=== PATIENT | female | born 1995 | race American Indian/Alaskan Native ===

== ENCOUNTER 2016-08-05 01:04 | Emergency (ER) | payer BC ==
[2016-08-05] MEDS ORDERED: CATAPRES PO ONE (02:45)
--- NOTE | 2016-08-05 02:47 | Emergency Department Report ---
HPI - General Chief Complaint: Skin/Abscess/Foreign Body Time Seen by Provider: 08/05/16 02:42 - HPI HPI: 21-year-old female presents today with a condom in her vagina 4-5 hours. Patient denies any other medical complaints. Denies fever, chills, nausea, vomiting, chest pain, shortness of breath, abdominal pain, vaginal bleeding, vaginal discharge, urinary symptoms. ED Past Medical Hx - Past Medical History Previous Medical History?: No - Surgical History Past Surgical History?: No - Social History Smoking Status: Never Smoker Substance Use Type: None - Medications Home Medications: Home Medications Medication Instructions Recorded Confirmed Last Taken Type Amoxicillin [Trimox CAP] 500 mg PO Q8H #30 capsule 12/10/13 Unknown Rx Norethindrone AC-Eth Estradiol 1 tab PO DAILY 12/10/13 12/10/13 12/10/13 21:00 History [Junel] predniSONE [Deltasone] 50 mg PO QDAY #4 tab 12/10/13 Unknown Rx Acetaminophen/Codeine 1 tab PO Q6H PRN #14 tab 06/04/15 Unknown Rx [Acetaminophen-Codeine #3 TAB] methOCARBAMOL [Robaxin TAB] 500 mg PO BID PRN #16 tab 06/04/15 Unknown Rx ED Review of Systems ROS: Stated complaint: FOREIGN BODY VAGINA Other details as noted in HPI Constitutional: denies: chills, fever, malaise Eyes: denies: eye pain ENT: denies: ear pain, throat pain, congestion Respiratory: denies: cough, shortness of breath, wheezing Cardiovascular: denies: chest pain, palpitations Endocrine: no symptoms reported Gastrointestinal: denies: abdominal pain, nausea, vomiting Genitourinary: denies: urgency, dysuria, frequency, hematuria, discharge Neurological: denies: headache, weakness Physical Exam - Physical Exam Vital Signs: Vital Signs 08/05/16 08/05/16 01:11 01:14 Temperature 98.9 F 98.9 F Pulse Rate 92 H 92 H Respiratory 20 20 Rate Blood Pressure 174/110 Blood Pressure 174/110 [Right] O2 Sat by Pulse 99 99 Oximetry Physical Exam: GENERAL: The patient is well-developed and well-nourished. Patient is in NAD. HEAD: Normocephalic. Atraumatic. CHEST/LUNGS: Clear to auscultation throughout. HEART/CARDIOVASCULAR: Regular rate and rhythm. ABDOMEN: Abdomen is soft, nontender. Bowel sounds normoactive. No guarding or rebound tenderness. GENITAL: Normal external genitalia. Visible condom in the vaginal canal. No discharge or bleeding noted. EXTREMITIES: Peripheral pulses intact. Capillary refill less than 2 seconds. NEURO: Alert and oriented x 3. Normal gait. ED Course Vital Signs 08/05/16 08/05/16 01:11 01:14 Temperature 98.9 F 98.9 F Pulse Rate 92 H 92 H Respiratory 20 20 Rate Blood Pressure 174/110 Blood Pressure 174/110 [Right] O2 Sat by Pulse 99 99 Oximetry ED Medical Decision Making - Lab Data Vital Signs 08/05/16 08/05/16 08/05/16 01:11 01:14 03:02 Temperature 98.9 F 98.9 F Pulse Rate 92 H 92 H 71 Respiratory 20 20 Rate Blood Pressure 174/110 Blood Pressure 174/110 143/93 [Right] O2 Sat by Pulse 99 99 Oximetry - Medical Decision Making 21-year-old female presents today with a condom in her vagina. The condom was visible on pelvic exam and was removed using sterile sponge forceps. Patient tolerated the procedure well. Explained to patient that her blood pressure levels are elevated and she needs to follow up with the primary care provider. Patient expressed understanding. Patient is in no acute distress at this time. She will be discharged home and is encouraged to follow up with a primary care provider. She is encouraged to return to the emergency room for any worsening symptoms. Critical care attestation.: If time is entered above; I have spent that time in minutes in the direct care of this critically ill patient, excluding procedure time. ED Disposition Clinical Impression: Vaginal foreign body Qualifiers: Encounter type: initial encounter Qualified Code(s): T19.2XXA - Foreign body in vulva and vagina, initial encounter Disposition: DISCHARGED TO HOME OR SELFCARE Is pt being admited?: No Does the pt Need Aspirin: No Condition: Stable Instructions: Vaginal Foreign Body (ED) Additional Instructions: Follow-up with primary care provider. Return to the emergency department if symptoms worsen. Referrals: PRIMARY CARE, [Primary Care Provider] - 3-5 Days [facility] [Outside] - 3-5 Days Forms: Work/School Release Form(ED) Time of Disposition: 03:02
[2016-08-05 03:03] VITALS: BP 143/93
== END 2016-08-05 03:11 | disposition home or self-care (01) ==
LOC: ED 01:04
DX: T19.2XXA Foreign body in vulva and vagina, initial encounter (principal); X58.XXXA Exposure to other specified factors, initial encounter; Y93.89 Activity, other specified; Y99.8 Other external cause status; Y92.89 Other specified places as the place of occurrence of the external cause

== ENCOUNTER 2019-01-16 15:35 | Emergency (ER) | payer BC ==
[2019-01-16 15:40] VITALS: BP 132/58
== END 2019-01-16 18:00 | disposition left against medical advice (07) ==
LOC: ED 15:35
DX: R30.9 Painful micturition, unspecified (principal); Z53.21 Procedure and treatment not carried out due to patient leaving prior to being seen by health care provider